=== PATIENT | male | born 1945 | race Caucasian/White ===

== ENCOUNTER 2018-04-20 12:24 | Day surgery (SDC) | payer MEDICARE, BC ==
[~2018-04-20] VITALS: Ht 177.8 cm; Wt 79.5 kg
[~2018-04-20 12:24] MED LIST: ARMO250T4 PO; CARV-50 PO; ISOS60TA PO; MYCO250C46 PO; NITR0.4T51 SL; PANT40TA39 PO; PRAV40TA65 PO; ZES2.5T PO
[2018-04-20 12:35] VITALS: BP 122/80
[2018-04-20] MEDS ORDERED: fentaNYL/PF 50MCG/1 ML 2ML syringe ONE (13:00)
[2018-04-20] MEDS ORDERED: LIDOcaine Viscous 15ml cup ONE (13:00)
[2018-04-20] MEDS ORDERED: MIDAZolam 5mg/5ml vial ONE (13:00)
[2018-04-20] MEDS ORDERED: TACR100O2 TOP (13:05)
[2018-04-20] MEDS ORDERED: AMLO5TAB PO (13:05)
[2018-04-20] MEDS ORDERED: LOSA25TA21 PO (13:06)
[2018-04-20] MEDS ORDERED: PANT-47 PO ×2 (13:12→13:15)
[2018-04-20] MEDS ORDERED: MYCO250C46 PO (13:15)
[2018-04-20 14:26] VITALS: BP 103/57
[2018-04-20 14:36] VITALS: BP 102/57
[2018-04-20 14:46] VITALS: BP 110/54
[2018-04-20 14:56] VITALS: BP 124/56
== END 2018-04-20 15:08 | disposition home or self-care (01) ==
LOC: GI LAB 12:24
PROVIDERS: ATTEND Internal Medicine Gastroenterology
DX: K22.70 Barrett's esophagus without dysplasia (principal); K44.9 Diaphragmatic hernia without obstruction or gangrene; I10 Essential (primary) hypertension; K21.0 Gastro-esophageal reflux disease with esophagitis; B19.20 Unspecified viral hepatitis C without hepatic coma; I25.2 Old myocardial infarction; Z96.641 Presence of right artificial hip joint; Z95.5 Presence of coronary angioplasty implant and graft; Z95.1 Presence of aortocoronary bypass graft; Z86.74 Personal history of sudden cardiac arrest; Z86.73 Personal history of transient ischemic attack (TIA), and cerebral infarction without residual deficits; Z98.890 Other specified postprocedural states; Z79.899 Other long term (current) drug therapy; Z94.4 Liver transplant status; Z80.0 Family history of malignant neoplasm of digestive organs
CPT/HCPCS: 43239; G0500; J2250; J3010; J7030; A4620